=== PATIENT | female | born 1975 | race Caucasian/White ===

== ENCOUNTER 2017-09-10 23:25 | Emergency (ER) | payer SELFPAY ==
[2017-09-10] MEDS ORDERED: Sodium Chloride 0.9% 5 ML Syringe FLUSH PRN (23:39)
[2017-09-10] MEDS: Ketorolac 30 MG/ML SDV IVPUSH ONE (23:50)
[2017-09-10] MEDS: methylPREDNISolone Sodium Succinate 125 MG/2 ML SDV IVPUSH ONE (23:50)
[2017-09-10] MEDS: Sodium Chloride 0.9% 1,000 ML IV ONE (23:50)
[2017-09-10] MEDS: Metoclopramide 10 MG/2 ML SDV IVPUSH ONE (23:50)
--- NOTE | 2017-09-10 23:50 | EDM.PDOC ---
ED HPI GENERAL MEDICAL PROBLEM - General Chief Complaint: Headache Stated Complaint: migraine Time Seen by Provider: 09/10/17 23:38 Source of Information: Reports: Patient History Limitations: Reports: No Limitations - History of Present Illness INITIAL COMMENTS - FREE TEXT/NARRATIVE: Patient is a 42-year-old female who presents to the emergency Department this evening with a complaint of migraine headache. Patient states headache began yesterday and has been persistent. Patient admits to chronic, migraines, however current medication is not working. Associated symptoms are nausea, and 2 episodes of vomiting, but denies any abdominal pain or bowel changes. Patient denies any head trauma, fever, or neck stiffness. 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(s) - Related Data Allergies Allergy/AdvReac Type Severity Reaction Status Date / Time amoxicillin Allergy Facial Verified 09/11/17 00:20 Swelling diphenhydramine Allergy Hives Verified 09/11/17 00:20 [From Benadryl] Penicillins Allergy Hives Verified 09/11/17 00:18 Home Meds: Home Meds Cholecalciferol (Vitamin D3) [Vitamin D3] 1 tab PO DAILY 09/11/17 [History] Diazepam [Valium] 5 mg PO BID PRN 09/11/17 [History] Dicyclomine HCl [Bentyl] 10 mg PO TID 09/11/17 [History] Escitalopram [Lexapro] 5 mg PO DAILY 09/11/17 [History] Pantoprazole [ProTONIX] 40 mg PO DAILY 09/11/17 [History] Valproic Acid 500 mg PO DAILY 09/11/17 [History] traMADol [Ultram] 50 mg PO QID PRN 09/11/17 [History] ED ROS ENT - Review of Systems Review Of Systems: ROS reveals no pertinent complaints other than HPI. Constitutional: Reports: No Symptoms HEENT: Reports: No Symptoms Respiratory: Reports: No Symptoms Cardiovascular: Reports: No Symptoms Endocrine: Reports: No Symptoms GI/Abdominal: Reports: No Symptoms : Reports: No Symptoms Musculoskeletal: Reports: No Symptoms Skin: Reports: No Symptoms Neurological: Reports: Headache. Denies: Dizziness, Numbness, Syncope, Change in Speech, Gait Disturbance Psychiatric: Reports: No Symptoms Hematologic/Lymphatic: Reports: No Symptoms Immunologic: Reports: No Symptoms ED EXAM, ENT - Physical Exam Exam: See Below Exam Limited By: No Limitations General Appearance: Alert, WD/WN, No Apparent Distress Eye Exam: Bilateral Eye: Normal Inspection Ears: Normal External Exam, Normal Canal, Normal TMs Nose: Normal Inspection, Normal Mucousa, No Blood Mouth/Throat: Normal Inspection, Normal Oropharynx Head: Atraumatic, Normocephalic Neck: Normal Inspection Respiratory/Chest: No Respiratory Distress, Lungs Clear, Normal Breath Sounds Cardiovascular: Regular Rate, Rhythm, No Murmur GI/Abdominal: Normal Bowel Sounds, Soft, Non-Tender Back: Normal Inspection. No: CVA Tenderness (L), CVA Tenderness (R) Extremities: Normal Inspection, No Pedal Edema Neurological: Alert, Oriented, CN II-XII Intact, Normal Cognition, No Motor/ Sensory Deficits Psychiatric: Normal Affect, Normal Mood Skin: Warm, Dry, Intact, Normal Color, No Rash Lymphatic: No Adenopathy Course - Orders/Labs/Meds Orders: Active Orders 24 hr Category Date Time Status Peripheral IV Care [RC] . DIRECTED Care 09/10/17 23:39 Ordered Sodium Chloride 0.9% @ 999 MLS/HR (1000ml) Med 09/10/17 23:39 Ordered Sodium Chloride 0.9% [Normal Saline] 1,000 ml IV .BOLUS Sodium Chloride 0.9% [Syrex Flush] Med 09/10/17 23:39 Ordered 5 ml FLUSH Q8HR PRN Peripheral IV Insertion Adult [OM.PC] Routine Oth 09/10/17 23:39 Ordered Medication Orders Sodium Chloride (Normal Saline) 1,000 mls @ 999 mls/hr IV .BOLUS ONE Stop: 09/11/17 00:39 Sodium Chloride (Syrex Flush) 5 ml FLUSH Q8HR PRN PRN Reason: Keep Vein Open Meds: Medications Generic Name Dose Route Start Last Admin Trade Name Freq PRN Reason Stop Dose Admin Sodium Chloride 1,000 mls @ 999 mls/hr 09/10/17 23:39 Normal Saline IV 09/11/17 00:39 .BOLUS ONE Sodium Chloride 5 ml 09/10/17 23:39 Syrex Flush FLUSH Q8HR PRN Keep Vein Open Discontinued Medications Generic Name Dose Route Start Last Admin Trade Name Freq PRN Reason Stop Dose Admin Ketorolac Tromethamine 30 mg 09/10/17 23:38 Toradol IM 09/10/17 23:39 ONETIME ONE Methylprednisolone Sodium Succinate 125 mg 09/10/17 23:38 Solu-Medrol IVPUSH 09/10/17 23:39 ONETIME ONE Metoclopramide HCl 10 mg 09/10/17 23:38 Reglan IVPUSH 09/10/17 23:39 ONETIME ONE - Re-Assessments/Exams Free Text/Narrative Re-Assessment/Exam: 09/11/17 00:29 Patient afebrile, nontoxic appearing, vital signs stable. Headache resolved. Patient will follow-up with PCP in 2-3 days for recheck. Departure - Departure Time of Disposition: 00:30 Disposition: Home, Self-Care 01 Condition: Good Clinical Impression: Migraine - Discharge Information Instructions: Migraine Headache, [id number], Recurrent Migraine Headache, [id number] Referrals: Rebeca Blandon PA-C [Physician] - Forms: ED Department Discharge Additional Instructions: Follow-up at [facility] in 2-3 days. - My Orders Last 24 Hours: My Active Orders 09/10/17 23:39 Peripheral IV Care [RC] . DIRECTED Sodium Chloride 0.9% @ 999 MLS/HR (1000ml) Sodium Chloride 0.9% [Normal Saline] 1,000 ml IV .BOLUS Sodium Chloride 0.9% [Syrex Flush] 5 ml FLUSH Q8HR PRN Peripheral IV Insertion Adult [OM.PC] Routine - Assessment/Plan Last 24 Hours: My Active Orders 09/10/17 23:39 Peripheral IV Care [RC] . DIRECTED Sodium Chloride 0.9% @ 999 MLS/HR (1000ml) Sodium Chloride 0.9% [Normal Saline] 1,000 ml IV .BOLUS Sodium Chloride 0.9% [Syrex Flush] 5 ml FLUSH Q8HR PRN Peripheral IV Insertion Adult [OM.PC] Routine Assessment:: Migraine headache Plan: Follow-up with PCP in 2-3 days
[2017-09-11] MEDS: Ketorolac 30 MG/ML SDV IM ONE (00:43)
[2017-09-11] MEDS: Metoclopramide 10 MG/2 ML SDV ONE (00:44)
[2017-09-11] MEDS: methylPREDNISolone Sodium Succinate 125 MG/2 ML SDV ONE (00:44)
[2017-09-11] MEDS: Ketorolac 30 MG/ML SDV ONE (00:44)
[2017-09-11] MEDS: Sodium Chloride 0.9% 1,000 ML ONE (00:44)
[2017-09-11] MEDS: predniSONE 20 MG Tab PO ONE (00:44)
== END 2017-09-11 00:45 | disposition home or self-care (01) ==
LOC: KA.ED 23:25
DX: G43.909 Migraine, unspecified, not intractable, without status migrainosus (principal); Z88.1 Allergy status to other antibiotic agents; Z88.0 Allergy status to penicillin; Z79.899 Other long term (current) drug therapy
CPT/HCPCS: 96361; 96374; 96375; 99283; A9270-GY; J1885; J2765; J2930; J7030

== ENCOUNTER 2017-11-14 13:50 | Emergency (ER) | payer BC ==
[2017-11-14] MEDS: Sodium Chloride 0.9% 1,000 ML IV ONE (14:50)
--- NOTE | 2017-11-14 15:08 | EDM.PDOC ---
ED HPI GENERAL MEDICAL PROBLEM - General Chief Complaint: General Stated Complaint: Generalized pain Time Seen by Provider: 11/14/17 14:30 Source of Information: Reports: Patient History Limitations: Reports: No Limitations - History of Present Illness INITIAL COMMENTS - FREE TEXT/NARRATIVE: 42 YO WF with complaints of generalized pain which has been going on over the last month. Pt reports she has been evaluated by PCP for lymphadenopathy and jaw pain. Pt has had ultrasound of neck/thyroid and CT of neck/facial bones and reports only lymphadenopathy noted on scans. Pt was re-evaluated and was told she had lymphadenopathy in groin and axilla as well. Pt was given ultram and scheduled to see oncologist 11/25/2017. Pt recently was seen in clinic for generalized rash and started on prednisone. Pt denies any fevers but reports night sweats and decreased appetite. Duration: Chronic Location: Reports: Generalized Quality: Reports: Ache Severity: Moderate Improves with: Reports: None Worsens with: Reports: None Associated Symptoms: Reports: No Other Symptoms, Malaise, Weakness - Related Data Allergies Allergy/AdvReac Type Severity Reaction Status Date / Time amoxicillin Allergy Facial Verified 11/14/17 14:16 Swelling ciprofloxacin [From Cipro] Allergy Facial Verified 11/14/17 14:17 Swelling diphenhydramine Allergy Hives Verified 11/14/17 14:16 [From Benadryl] Penicillins Allergy Hives Verified 11/14/17 14:16 sumatriptan [From Imitrex] Allergy Facial Verified 11/14/17 14:17 Swelling Home Meds: Home Meds Cholecalciferol (Vitamin D3) [Vitamin D3] 1 tab PO DAILY 09/11/17 [History] Diazepam [Valium] 5 mg PO BID PRN 09/11/17 [History] Dicyclomine HCl [Bentyl] 10 mg PO DAILY 09/11/17 [History] Escitalopram [Lexapro] 5 mg PO DAILY 09/11/17 [History] Pantoprazole [ProTONIX] 40 mg PO DAILY 09/11/17 [History] Valproic Acid 500 mg PO DAILY 09/11/17 [History] traMADol [Ultram] 50 mg PO QID PRN 09/11/17 [History] Hydrocodone/Acetaminophen [Hydrocodon-Acetaminophn 10-325] 1 each PO Q4H PRN # 15 tablet 11/14/17 [Rx] methylPREDNISolone [Medrol] 11/14/17 [History] Past Medical History Other Respiratory History: h/o smoking Gastrointestinal History: Reports: GERD, Irritable Bowel Syndrome Musculoskeletal History: Reports: Osteoporosis Neurological History: Reports: Concussion, Migraines Psychiatric History: Reports: Anxiety, Depression - Past Surgical History Female Surgical History: Reports: Breast Biopsy, Hysterectomy Social & Family History - Tobacco Use Smoking Status *Q: Former Smoker Years of Tobacco use: 25 Packs/Tins Daily: 1 Used Tobacco, but Quit: Yes Month/Year Tobacco Last Used: 2016 Second Hand Smoke Exposure: No - Caffeine Use Caffeine Use: Reports: Coffee, Soda - Recreational Drug Use Recreational Drug Use: No ED ROS GENERAL - Review of Systems Review Of Systems: See Below Constitutional: Reports: Malaise, Weakness, Fatigue, Night Sweats, Decreased Appetite, Weight Gain HEENT: Reports: No Symptoms Respiratory: Reports: No Symptoms Cardiovascular: Reports: No Symptoms Endocrine: Reports: Fatigue GI/Abdominal: Reports: No Symptoms : Reports: No Symptoms Musculoskeletal: Reports: Arm Pain, Back Pain, Leg Pain Skin: Reports: No Symptoms Neurological: Reports: No Symptoms Psychiatric: Reports: No Symptoms Hematologic/Lymphatic: Reports: Swollen Glands Immunologic: Reports: Environmental Allergy ED EXAM, GENERAL - Physical Exam Exam: See Below Exam Limited By: No Limitations General Appearance: Alert, WD/WN, No Apparent Distress Eye Exam: Bilateral Eye: EOMI, PERRL Ears: Normal External Exam, Normal Canal, Hearing Grossly Normal, Normal TMs Nose: Normal Inspection, Normal Mucosa, No Blood Throat/Mouth: Normal Inspection, Normal Lips, Normal Teeth, Normal Gums, Normal Oropharynx, Normal Voice, No Airway Compromise Head: Atraumatic, Normocephalic Neck: Normal Inspection, Supple, Non-Tender, Full Range of Motion Respiratory/Chest: No Respiratory Distress, Lungs Clear, Normal Breath Sounds, No Accessory Muscle Use, Chest Non-Tender Cardiovascular: Normal Peripheral Pulses, Regular Rate, Rhythm, No Edema, No Gallop, No JVD, No Murmur, No Rub GI/Abdominal: Normal Bowel Sounds, Soft, Non-Tender, No Organomegaly, No Distention, No Abnormal Bruit, No Mass Back Exam: Normal Inspection, Full Range of Motion, NT Extremities: Normal Inspection, Normal Range of Motion, Non-Tender, Normal Capillary Refill, No Pedal Edema Neurological: Alert, Oriented, CN II-XII Intact, Normal Cognition, Normal Gait, Normal Reflexes, No Motor/Sensory Deficits Psychiatric: Normal Affect, Normal Mood Skin Exam: Warm, Dry, Intact, Normal Color, No Rash Course - Vital Signs Last Recorded V/S: Last Vital Signs Temp 36.6 C 11/14/17 14:15 Pulse 68 11/14/17 14:15 Resp 16 11/14/17 14:15 BP 100/47 L 11/14/17 14:15 Pulse Ox 97 11/14/17 14:15 - Orders/Labs/Meds Orders: Active Orders 24 hr Category Date Time Status CXR [Chest 2V] [CR] Stat Exams 11/14/17 14:34 Ordered UA W/MICROSCOPIC [URIN] Stat Lab 11/14/17 14:33 Ordered Labs: Laboratory Tests 11/14/17 11/14/17 11/14/17 Range/Units 14:45 14:45 15:10 WBC 6.9 (5.0-10.0) 10^3/uL RBC 4.64 (3.80-5.50) 10^6/uL Hgb 14.6 (12.0-16.0) g/dL Hct 43.7 (37.0-47.0) % MCV 94.3 H (82.0-92.0) fL MCH 31.4 H (27.0-31.0) pg MCHC 33.3 (32.0-36.0) g/dL RDW 12.4 (11.5-14.5) % Plt Count 199 (150-300) 10^3/uL MPV 7.6 (7.4-10.4) fL Neut % (Auto) 67.6 (50.0-70.0) % Lymph % (Auto) 22.8 (20.0-40.0) % [place] % (Auto) 8.7 H (2.0-8.0) % Eos % (Auto) 0.6 L (1.0-3.0) % Baso % (Auto) 0.3 (0.0-1.0) % Neut # (Auto) 4.7 (2.5-7.0) 10^3/uL Lymph # (Auto) 1.6 (1.0-4.0) 10^3/uL [place] # (Auto) 0.6 (0.1-0.8) 10^3/uL Eos # (Auto) 0.0 L (0.1-0.3) 10^3/uL Baso # (Auto) 0.0 (0.0-0.1) 10^3/uL Sodium 143 (136-145) mmol/L Potassium 4.1 (3.3-5.3) mmol/L Chloride 104 (98-115) mmol/L Carbon Dioxide 30.5 (21.0-32.0) mmol/L BUN 7 (6-25) mg/dL Creatinine 0.76 (0.51-1.17) mg/dL Est Cr Clr Drug Dosing 74.71 mL/min Estimated GFR (MDRD) > 60 mL/min Glucose 90 (70-110) mg/dL Calcium 8.9 (8.7-10.3) mg/dL Total Bilirubin 0.2 (0.2-1.0) mg/dL AST 10 L (15-37) U/L ALT 16 (12-78) U/L Alkaline Phosphatase 36 L (46-116) IU/L Total Protein 7.1 (6.4-8.2) g/dL Albumin 3.67 (3.00-4.80) g/dL Specimen Type Urinvoid Urine Color Light yellow (YELLOW) Urine Appearance Clear (CLEAR) Urine pH 8.5 (5.0-9.0) Ur Specific [place] 1.015 (1.005-1.030) Urine Protein Negative (NEGATIVE) mg/dL Urine Glucose (UA) Negative (NEGATIVE) mg/dL Urine Ketones Negative (NEGATIVE) mg/dL Urine Occult Blood Trace-intact H (NEGATIVE) Urine Nitrite Negative (NEGATIVE) Urine Bilirubin Negative (NEGATIVE) Urine Urobilinogen 0.2 (0.2-1.0) E.U./dL Ur Leukocyte Esterase Negative (NEGATIVE) Urine RBC 0-5 /HPF Urine WBC 0-5 /HPF Ur Epithelial Cells Moderate H /LPF Urine Bacteria Rare (NONE TO FEW) /HPF Meds: Medications Discontinued Medications Generic Name Dose Route Start Last Admin Trade Name Freq PRN Reason Stop Dose Admin Hydromorphone HCl 1 mg 11/14/17 14:59 11/14/17 15:18 Dilaudid IVPUSH 11/14/17 15:00 0.5 mg ONETIME ONE Administration Sodium Chloride 1,000 mls @ 999 mls/hr 11/14/17 14:33 11/14/17 14:50 Normal Saline IV 11/14/17 15:33 999 mls/hr .BOLUS ONE Administration Ondansetron HCl 4 mg 11/14/17 14:59 11/14/17 15:15 Zofran IVPUSH 11/14/17 15:00 4 mg ONETIME ONE Administration - Radiology Interpretation Free Text/Narrative:: CXR- NAD Departure - Departure Time of Disposition: 15:47 Disposition: Home, Self-Care 01 Condition: Good Clinical Impression: Generalized pain - Discharge Information Prescriptions: Hydrocodone/Acetaminophen [Hydrocodon-Acetaminophn 10-325] 1 each PO Q4H PRN # 15 tablet PRN Reason: Pain Instructions: Pain Without a Known Cause Referrals: PCP,None [Primary Care Provider] - Jamari Hallman MD [Physician] - Forms: ED Department Discharge - My Orders Last 24 Hours: My Active Orders 11/14/17 14:33 UA W/MICROSCOPIC [URIN] Stat 11/14/17 14:34 CXR [Chest 2V] [CR] Stat - Assessment/Plan Last 24 Hours: My Active Orders 11/14/17 14:33 UA W/MICROSCOPIC [URIN] Stat 11/14/17 14:34 CXR [Chest 2V] [CR] Stat Assessment:: 1. Generalized pain 2. Lymphadenopathy Plan: 1. discharge home 2. follow up with oncology 11/25/2017 as scheduled 3. follow up in clinic for further management of pain 4. hydrocodone 10/325 Q4-6 PRN pain 5. return to ER for worsening symptoms
[2017-11-14 15:13] LABS: CHLORIDE,CL 104 mmol/L (98-115); SODIUM,NA 143 mmol/L (136-145)
[2017-11-14] MEDS: Ondansetron 4 MG/2 ML SDV IVPUSH ONE (15:15)
[2017-11-14] MEDS: HYDROmorphone 1 MG/ML Syringe IVPUSH ONE (15:18)
== END 2017-11-14 17:30 | disposition home or self-care (01) ==
LOC: KA.ED 13:50
DX: R59.1 Generalized enlarged lymph nodes (principal); R52 Pain, unspecified; Z88.1 Allergy status to other antibiotic agents; Z88.0 Allergy status to penicillin; Z79.899 Other long term (current) drug therapy; Z87.891 Personal history of nicotine dependence
CPT/HCPCS: 71046; 80053; 81001; 85025; 96361; 96374; 96375; 99283; J1170; J2405; J7030

== ENCOUNTER 2017-11-26 20:45 | Emergency (ER) | payer BC ==
--- NOTE | 2017-11-26 21:28 | EDM.PDOC ---
ED HPI GENERAL MEDICAL PROBLEM - General Chief Complaint: Lower Extremity Injury/Pain Stated Complaint: LEFT PINKY TOE?? Time Seen by Provider: 11/26/17 21:20 Source of Information: Reports: Patient History Limitations: Reports: No Limitations - History of Present Illness INITIAL COMMENTS - FREE TEXT/NARRATIVE: She is a 42-year-old female who presents to the emergency department this evening with a complaint of left foot pain secondary to accidentally kicking chair earlier this evening. Patient denies any other injury. Patient does state that she has chronic generalized pain as being seen at [facility]. Patient states that she has been unable to get an appointment as ran out of her pain medication. Patient is requesting pain medicine. Patient denies chest pain, shortness of breath, fever, nausea, vomiting or diarrhea. Onset: Today Onset Date: 11/26/17 Duration: Hour(s): Location: Reports: Lower Extremity, Left Quality: Reports: Ache Severity: Mild Improves with: Reports: None Worsens with: Reports: Movement Associated Symptoms: Reports: No Other Symptoms - Related Data Allergies Allergy/AdvReac Type Severity Reaction Status Date / Time amoxicillin Allergy Facial Verified 11/26/17 20:49 Swelling ciprofloxacin [From Cipro] Allergy Facial Verified 11/26/17 20:49 Swelling diphenhydramine Allergy Hives Verified 11/26/17 20:49 [From Benadryl] eletriptan [From Relpax] Allergy Anaphylactic Verified 11/26/17 20:49 Shock Penicillins Allergy Hives Verified 11/26/17 20:49 sumatriptan [From Imitrex] Allergy Facial Verified 11/26/17 20:49 Swelling Home Meds: Home Meds Cholecalciferol (Vitamin D3) [Vitamin D3] 1 tab PO DAILY 09/11/17 [History] Diazepam [Valium] 5 mg PO BID PRN 09/11/17 [History] Dicyclomine HCl [Bentyl] 10 mg PO DAILY 09/11/17 [History] Escitalopram [Lexapro] 5 mg PO DAILY 09/11/17 [History] Pantoprazole [ProTONIX] 40 mg PO DAILY 09/11/17 [History] Valproic Acid 500 mg PO DAILY 09/11/17 [History] traMADol [Ultram] 50 mg PO QID PRN 09/11/17 [History] Hydrocodone/Acetaminophen [Hydrocodon-Acetaminophn 10-325] 1 each PO Q4H PRN # 15 tablet 11/14/17 [Rx] Past Medical History Other Respiratory History: h/o smoking Gastrointestinal History: Reports: GERD, Irritable Bowel Syndrome Musculoskeletal History: Reports: Osteoporosis Neurological History: Reports: Concussion, Migraines Psychiatric History: Reports: Anxiety, Depression Hematologic History: Reports: Other (See Below) Other Hematologic History: going to see a ship construction teacher on 11/21/17 for a lump on left jaw - Past Surgical History Female Surgical History: Reports: Breast Biopsy, Hysterectomy Social & Family History - Caffeine Use Caffeine Use: Reports: Coffee, Soda Review of Systems - Review of Systems Review Of Systems: ROS reveals no pertinent complaints other than HPI. Constitutional: Reports: No Symptoms Eyes: Reports: No Symptoms Ears: Reports: No Symptoms Nose: Reports: No Symptoms Mouth/Throat: Reports: Hoarse Voice (Of chronic nature) Respiratory: Reports: No Symptoms Cardiovascular: Reports: No Symptoms GI/Abdominal: Reports: No Symptoms Genitourinary: Reports: No Symptoms Musculoskeletal: Reports: Muscle Pain (Generalized) Skin: Reports: No Symptoms Neurological: Reports: No Symptoms Psychiatric: Reports: No Symptoms ED EXAM, GENERAL - Physical Exam Exam: See Below Exam Limited By: No Limitations General Appearance: Alert, WD/WN, No Apparent Distress Throat/Mouth: Normal Inspection, Normal Oropharynx, No Airway Compromise Head: Atraumatic, Normocephalic Respiratory/Chest: No Respiratory Distress, Lungs Clear Back Exam: Normal Inspection Extremities: Other (Left foot fifth digit with ecchymosis and mild edema. No proximal involvement or deformity noted) Neurological: Alert, Oriented, Normal Cognition Psychiatric: Normal Affect, Normal Mood Skin Exam: Warm, Dry, Intact, Normal Color, No Rash Course - Vital Signs Last Recorded V/S: Last Vital Signs Temp 97.9 F 11/26/17 20:51 Pulse 50 L 11/26/17 20:51 Resp 18 11/26/17 20:51 BP 91/33 L 11/26/17 20:51 Pulse Ox 100 11/26/17 20:51 - Orders/Labs/Meds Orders: Active Orders 24 hr Category Date Time Status Foot 2V Lt [CR] Stat Exams 11/26/17 21:03 Ordered - Radiology Interpretation Free Text/Narrative:: X-ray left foot shows no acute bony abnormality. - Re-Assessments/Exams Free Text/Narrative Re-Assessment/Exam: 11/26/17 21:33 Patient afebrile, nontoxic appearing, vital signs stable, pain control. She will follow-up with PCP Departure - Departure Time of Disposition: 21:48 Disposition: Home, Self-Care 01 Condition: Good Clinical Impression: Contusion of foot, left Qualifiers: Encounter type: initial encounter Qualified Code(s): S90.32XA - Contusion of left foot, initial encounter Chronic pain Qualifiers: Chronic pain type: chronic pain syndrome Qualified Code(s): G89.4 - Chronic pain syndrome - Discharge Information Instructions: Foot Contusion, [id number], Pain Medicine Instructions, Easy-to -Read, Chronic Pain, Adult Referrals: Manish Bolanos WEB SUPPORT ENGINEER [Primary Care Provider] - Forms: ED Department Discharge Additional Instructions: follow-up at [facility] in 1-2 days. Return to emergency sooner if symptoms continue or worsen - My Orders Last 24 Hours: My Active Orders 11/26/17 21:03 Foot 2V Lt [CR] Stat - Assessment/Plan Last 24 Hours: My Active Orders 11/26/17 21:03 Foot 2V Lt [CR] Stat Assessment:: Left foot contusion Plan: Follow-up with PCP
[2017-11-26] MEDS ORDERED: Acetaminophen/HYDROcodone 325-10 MG Tab PO ONE (21:47)
[2017-11-26] MEDS ORDERED: Acetaminophen/HYDROcodone 325-10 MG Tab ONE (21:48)
== END 2017-11-26 22:00 | disposition home or self-care (01) ==
LOC: KA.ED 20:45
DX: S90.32XA Contusion of left foot, initial encounter (principal); G89.4 Chronic pain syndrome; Z88.1 Allergy status to other antibiotic agents; Z88.0 Allergy status to penicillin; Z88.8 Allergy status to other drugs, medicaments and biological substances; Z79.899 Other long term (current) drug therapy; W22.8XXA Striking against or struck by other objects, initial encounter
CPT/HCPCS: 73620; 99283; A9270

== ENCOUNTER 2019-11-20 10:01 | Emergency (ER) | payer MEDICAID, OTHER ==
[2019-11-20] MEDS ORDERED: Famotidine 20 MG/2 ML SDV IVPUSH ONE (10:08)
[2019-11-20] MEDS ORDERED: methylPREDNISolone Sodium Succinate 125 MG/2 ML SDV IVPUSH ONE (10:08)
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
== END 2019-11-20 11:45 | disposition home or self-care (01) ==
LOC: KA.ED 10:01
DX: K14.8 Other diseases of tongue (principal); T36.8X5A Adverse effect of other systemic antibiotics, initial encounter; Z88.0 Allergy status to penicillin; Z91.030 Bee allergy status; Z91.018 Allergy to other foods; Z88.5 Allergy status to narcotic agent; Z88.8 Allergy status to other drugs, medicaments and biological substances; Z79.899 Other long term (current) drug therapy
CPT/HCPCS: 96374; 96375; 99283-25; J2930; J3490

== ENCOUNTER 2019-12-23 23:12 | Emergency (ER) | payer MEDICAID ==
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
[2019-12-24] MEDS: Menthol/Zinc Oxide Ointment 3.5 GM Tube TOP PRN (00:16)
== END 2019-12-24 00:35 | disposition home or self-care (01) ==
LOC: KA.ED 23:12
DX: L55.0 Sunburn of first degree (principal); F41.9 Anxiety disorder, unspecified; F32.9 Major depressive disorder, single episode, unspecified; F17.210 Nicotine dependence, cigarettes, uncomplicated; Z88.1 Allergy status to other antibiotic agents; Z91.030 Bee allergy status; Z91.018 Allergy to other foods; Z88.8 Allergy status to other drugs, medicaments and biological substances; Z88.5 Allergy status to narcotic agent; Z79.899 Other long term (current) drug therapy
CPT/HCPCS: 99282; A9270-GY

== ENCOUNTER 2021-02-03 13:47 | Emergency (ER) | payer MEDICAID ==
[2021-02-03] MEDS ORDERED: Sodium Chloride 0.9% 10 ML Syringe FLUSH PRN (14:06)
[2021-02-03] MEDS ORDERED: Ketorolac 30 MG/ML SDV IVPUSH ONE (14:15)
[2021-02-03] MEDS ORDERED: methylPREDNISolone Sodium Succinate 125 MG/2 ML SDV IVPUSH ONE (14:15)
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
[2021-02-03 14:46] LABS: ANION GAP 12.8 mmol/L (5-15); CHLORIDE,CL 104 mmol/L (98-107); SODIUM,NA 142 mmol/L (136-145)
== END 2021-02-03 15:40 | disposition home or self-care (01) ==
LOC: KA.ED 13:47
DX: M48.02 Spinal stenosis, cervical region (principal); R60.0 Localized edema; Z88.0 Allergy status to penicillin; Z91.030 Bee allergy status; Z88.1 Allergy status to other antibiotic agents; Z88.6 Allergy status to analgesic agent; Z91.048 Other nonmedicinal substance allergy status; Z79.899 Other long term (current) drug therapy
CPT/HCPCS: 36415; 80048; 85025; 96374; 96375; 99284; J1885; J2930; J3360

== ENCOUNTER 2021-02-07 23:24 | Emergency (ER) | payer MEDICAID ==
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
[2021-02-08] MEDS: Sodium Chloride 0.9% 1,000 ML ONE (00:37)
[2021-02-08] MEDS: Sodium Chloride 0.9% 1,000 ML IV ONE (00:37)
[2021-02-08] MEDS: Ondansetron 4 MG/2 ML SDV IVPUSH ONE (00:37)
[2021-02-08] MEDS: HYDROmorphone 1 MG/ML Syringe IVPUSH ONE (00:38)
[2021-02-08 00:45] VITALS: BP 98/57; PULSE 60
== END 2021-02-08 01:26 ==
LOC: KA.ED 23:24
DX: M79.601 Pain in right arm (principal); R51.9 Headache, unspecified; Z88.0 Allergy status to penicillin; Z91.030 Bee allergy status; Z88.6 Allergy status to analgesic agent; Z88.1 Allergy status to other antibiotic agents; Z88.8 Allergy status to other drugs, medicaments and biological substances; Z91.09 Other allergy status, other than to drugs and biological substances; Z72.0 Tobacco use
CPT/HCPCS: 96374; 96375; 99284; 99285-25; J1170; J2405; J7030

== ENCOUNTER 2021-06-19 19:24 | Emergency (ER) | payer MEDICAID ==
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
[2021-06-19] MEDS ORDERED: Ondansetron 4 MG/2 ML SDV IVPUSH ONE (19:59)
[2021-06-19] MEDS ORDERED: Sodium Chloride 0.9% 10 ML Syringe FLUSH PRN (20:00)
[2021-06-19] MEDS ORDERED: Sodium Chloride 0.9% 1,000 ML IV ONE (20:01)
[2021-06-19 20:36] LABS: ANION GAP 12.5 mmol/L (5-15); CHLORIDE,CL 103 mmol/L (98-107); SODIUM,NA 144 mmol/L (136-145)
[2021-06-19] MEDS ORDERED: Ketorolac 30 MG/ML SDV IVPUSH ONE (21:20)
[2021-06-19] MEDS ORDERED: Iopamidol 755 Mg/ML 75 ML Bottle IVPUSH ONE (22:03)
[2021-06-19] MEDS ORDERED: Sodium Chloride 0.9% 50 ML IV SCH (22:15)
--- NOTE | 2021-06-20 09:06 | CT ---
[id number] CT/CT Abdomen Pelvis W IV EXAM: CT Abdomen Pelvis W IV CLINICAL DATA: ABDOMINAL PAIN LEFT SIDED DESCENDING COLON COMPARISON STUDY: None. FINDINGS: Dependent atelectasis at the lung bases bilaterally. The gallbladder surgically absent. The liver, spleen, pancreas, adrenal glands and kidneys are unremarkable. No hydronephrosis or hydroureter. No bowel obstruction or inflammation. Colonic diverticulosis without evidence of acute diverticulitis. The appendix is not well-visualized however there are no secondary signs of acute appendicitis. No lymphadenopathy, or pneumoperitoneum. Small amount of free fluid within the pelvis likely physiologic. Scattered changes of spondylosis the spine. No fracture or osseous lesion. IMPRESSION: 1. No acute CT findings within the abdomen or pelvis to explain the patient's symptoms. Alfredo Gary DO 06/20/21 0904 Thank you for allowing us to participate in the care of your patient.
--- NOTE | 2021-06-20 09:10 | CR ---
[id number] RAD/RAD Chest PA or AP 1V EXAM: RAD Chest PA or AP 1V INDICATION: ABDOMINAL PAIN LEFT SIDED DESCENDING COLON COMPARISON: May 27, 2020. DISCUSSION: Cardiomediastinal silhouette is normal in size and contour. No infiltrate, effusion, pneumothorax, or edema. Pulmonary hyperinflation. Left basilar subsegmental atelectasis and/or scarring. IMPRESSION: No acute cardiopulmonary abnormality. Alfredo Gary DO 06/20/21 0909 Thank you for allowing us to participate in the care of your patient.
== END 2021-06-19 22:40 | disposition home or self-care (01) ==
LOC: KA.ED 19:24
DX: R10.32 Left lower quadrant pain (principal); R11.0 Nausea; Z88.0 Allergy status to penicillin; Z91.030 Bee allergy status; Z88.1 Allergy status to other antibiotic agents; Z88.5 Allergy status to narcotic agent; Z91.048 Other nonmedicinal substance allergy status; Z91.09 Other allergy status, other than to drugs and biological substances; Z79.899 Other long term (current) drug therapy; Z87.891 Personal history of nicotine dependence
CPT/HCPCS: 36415; 71045; 74177; 80053; 81001; 82150; 83690; 85025; 86140; 87086; 96374; 96375; 99284; 99284-25; J1885; J2405; J7030; Q9967